=== PATIENT | female | born 1950 | race Caucasian/White ===

== ENCOUNTER 2018-08-18 13:33 | Outpatient (CLI) | payer MEDICARE ==
--- NOTE | 2018-08-18 16:29 | ULT ---
LEFT BREAST ULTRASOUND: HISTORY: Palpable abnormality of the 11 o'clock position of the left retroareolar breast. FINDINGS: Correlation is made with mammograms same date. Sonographic evaluation of the region of palpable concern at the 11 o'clock position of the left breas t 1 cm from the nipple demonstrates no abnormality. IMPRESSION: BIRADS category 2 - benign findings. Return to annual mammographic screening. Further evaluation (including biopsy) should be based on clinical findings/suspicion. POS: RIKA
== END 2018-08-18 13:34 | disposition home or self-care (01) ==
LOC: BICMAMMO 13:33
PROVIDERS: ATTEND Family Medicine
DX: N63.20 Unspecified lump in the left breast, unspecified quadrant (principal); Z80.3 Family history of malignant neoplasm of breast
CPT/HCPCS: 76642; 77066; G0279

== ENCOUNTER 2018-09-04 08:16 | Outpatient (CLI) | payer MEDICARE ==
--- NOTE | 2018-09-04 10:12 | ULT ---
ULTRASOUND ABDOMEN COMPLETE HISTORY: Abdominal pain. TECHNIQUE: Hughes-scale ultrasound evaluation of the liver, gallbladder, spleen, pancreas, common bile duct, kidne ys, abdominal aorta, and inferior vena cava (IVC). FINDINGS: There is no focal hepatic lesion. Echogenic focus, mobile, within the gallbladder lumen compatible w ith cholelithiasis. There is a borderline-sized gallbladder wall approximating 3 mm. The spleen is not reliably visualized. The common duct where visualized is normal in diameter at 4 mm. The pancre as is obscured from view by bowel content limiting assessment. No hydronephrosis of the left kidney. The right kidney is not visualized for comment. Denise's sign is reported as negative by the sonog rapher. There is no ascites. IMPRESSION: 1. Cholelithiasis. Borderline-sized gallbladder wall is present. Correlate clinically to exclude e vidence of developing cholecystitis. 2. Nonvisualization of right kidney. POS: RIKA
== END 2018-09-04 08:17 | disposition home or self-care (01) ==
LOC: BICULT 08:16
PROVIDERS: ATTEND Family Medicine
DX: R10.13 Epigastric pain (principal); K80.20 Calculus of gallbladder without cholecystitis without obstruction
CPT/HCPCS: 76700

== ENCOUNTER 2019-01-01 15:48 | Outpatient (CLI) | payer MEDICARE ==
--- NOTE | 2019-01-01 19:31 | RAD ---
THORACIC SPINE THREE VIEWS: History: Thoracic spine pain. FINDINGS: Thoracic vertebra maintain height and alignment on the lateral view. Mild degenerative spurring is no bertrand. On the AP view there is a mild scoliotic curvature with convexity to the right with apex at T11 and T12 measured at 13 degrees. IMPRESSION: Mild degenerative change thoracic spine. Mild scoliotic curvature as described. POS: C
--- NOTE | 2019-01-01 19:33 | RAD ---
LUMBAR SPINE TWO VIEWS: History: Back pain. FINDINGS: Two views were obtained. AP and lateral views weightbearing. In the lateral view the lumbar vertebrae maintain height and alignment. Mild degenerative spurring is seen. The disc spaces are preserved. Facet hypertrophy is noted throughout. There is a slight curvat ure to the left with apex to L3. No evidence of spondylolisthesis or spondylosis. IMPRESSION: Mild degenerative changes of the lumbar spine with slight curvature to the left in the AP projection. POS: [facility]
== END 2019-01-01 15:49 | disposition home or self-care (01) ==
LOC: BICRAD 15:48
PROVIDERS: ATTEND Family Medicine
DX: M54.6 Pain in thoracic spine (principal); M54.5 Low back pain; M47.816 Spondylosis without myelopathy or radiculopathy, lumbar region; M47.814 Spondylosis without myelopathy or radiculopathy, thoracic region; M41.9 Scoliosis, unspecified
CPT/HCPCS: 72072; 72100

== ENCOUNTER 2022-03-15 07:58 | Outpatient (CLI) | payer MEDICARE | END 2022-03-15 07:59 | disposition home or self-care (01) | LOC: RAD 07:58 | PROVIDERS: ATTEND Internal Medicine Critical Care Medicine | DX: R06.00 Dyspnea, unspecified (principal) | CPT/HCPCS: 71046 ==

== ENCOUNTER 2022-07-03 09:38 | Outpatient (CLI) | payer MEDICARE | END 2022-07-03 09:39 | disposition home or self-care (01) | LOC: BICMRI 09:38 | PROVIDERS: ATTEND Internal Medicine Hematology & Oncology | DX: C50.112 Malignant neoplasm of central portion of left female breast (principal) | CPT/HCPCS: 82565; C8908; A9577 ==

== ENCOUNTER 2022-07-04 09:53 | Outpatient (CLI) | payer MEDICARE ==
[2022-07-04 10:49] LABS: #Basophils 0.1 10x3/uL (0.0-0.2); #Eosinphils 0.4 10x3/uL (0.0-0.5); #Monocytes 0.5 10x3/uL (0.0-1.1); #Neutrophils 5.2 10x3/uL (1.5-8.4); %Basophils 0.8 % (0.0-2.0); %Eosinophils 5.4 % (0.0-6.0); %Lymphocytes 22.6 % (18.0-47.0); %Neutrophils 64.9 % (40.0-75.0); Hemoglobin 13.6 g/dL (12.0-15.5); Mean Corpuscular HGB CONC 33.2 g/dL (32.0-36.0); Mean Corpuscular Hemoglobin 28.9 pg (27.0-33.0); Mean Corpuscular Volume 87.2 fl (81.6-98.3); Mean Platelet Volume 9.9 fl (7.4-10.4); Platelet Count 252 10x3/uL (150-450); RBC Distribution Width 13.9 % (11.5-14.5)
[2022-07-04 11:28] LABS: ALT (SGPT) 28 U/L (8-55); AST (SGOT) 24 U/L (5-34); Alkaline Phosphatase 79 U/L (40-110); Anion Gap 12 mmol/L (10-20); BUN (Urea Nitrogen) 18 mg/dL (9.8-20.1); Bilirubin, Total 0.4 mg/dL (0.2-1.2); Calc. Creatinine Clearance 0 mL/min (70-130); Carbon Dioxide 28 mmol/L (23-31); Chloride 105 mmol/L (98-107); Estimated GFR 55; Globulin 2.6 g/dL (2.4-3.5); Glucose 122 mg/dL (83-110); Potassium 4.2 mmol/L (3.5-5.1); Protein, Total 6.6 g/dL (5.8-8.1); Sodium 141 mmol/L (136-145)
== END 2022-07-04 09:54 | disposition home or self-care (01) ==
LOC: LABBT 09:53
PROVIDERS: ATTEND Specialist
DX: Z01.818 Encounter for other preprocedural examination (principal); C50.912 Malignant neoplasm of unspecified site of left female breast; Z20.822 Contact with and (suspected) exposure to COVID-19
CPT/HCPCS: 71046; 80053; 85025; 87811; 93005; 93010

== ENCOUNTER 2022-07-16 15:03 | Outpatient (CLI) | payer MEDICARE | END 2022-07-16 15:04 | disposition home or self-care (01) | LOC: LABBT 15:03 | PROVIDERS: ATTEND Specialist | DX: Z20.822 Contact with and (suspected) exposure to COVID-19 (principal) | CPT/HCPCS: 87811 ==

== ENCOUNTER 2022-07-18 06:17 | Day surgery (SDC) | payer MEDICARE ==
[2022-07-17 13:22] VITALS: BMI 36.6
[2022-07-18] MEDS ORDERED: Bupivacaine/Epinephrine 0.25% 30 ML VIAL ONE ×2 (06:50→07:41)
[2022-07-18] MEDS ORDERED: EPINEPHrine 1 MG/ML AMP ONE (06:50)
[2022-07-18] MEDS ORDERED: Bupivacaine PF 0.5% 30 ML VIAL ONE (06:50)
[2022-07-18] MEDS ORDERED: Ketorolac Tromethamine 30 MG/ML VIAL ONE (06:54)
[2022-07-18] MEDS ORDERED: Acetaminophen 500 MG TAB ONE (06:54)
[2022-07-18] MEDS ORDERED: fentaNYL Citrate/PF 100 MCG/2 ML SYRINGE ONE (07:03)
[2022-07-18] MEDS ORDERED: Ketorolac Tromethamine 30 MG/ML VIAL IVP SCH (07:15)
[2022-07-18] MEDS ORDERED: Gabapentin 100 MG CAP PO SCH (07:15)
[2022-07-18] MEDS ORDERED: Acetaminophen 500 MG TAB PO SCH (07:15)
[2022-07-18] MEDS ORDERED: CEFAZOLIN 2 GM in Sodium Chloride 0.9% 100 ML IVPB SCH (07:15)
[2022-07-18] MEDS ORDERED: Sodium Chloride 0.9% 100 ML ONE (07:28)
[2022-07-18] MEDS ORDERED: CEFAZOLIN 2 GM VIAL ONE (07:28)
[2022-07-18] MEDS ORDERED: PROPOFOL 200 MG/20 ML VIAL ONE (07:41)
[2022-07-18] MEDS ORDERED: Ondansetron PF 4 MG/2 ML Vial ONE (07:41)
[2022-07-18] MEDS ORDERED: ePHEDrine 50 MG/ML VIAL ONE (07:41)
[2022-07-18] MEDS ORDERED: Dexamethasone 20 MG/5 ML VIAL ONE (07:41)
[2022-07-18] MEDS ORDERED: traMADol HCl 50 MG TAB ONE (09:27)
[2022-07-18] MEDS ORDERED: Morphine 2 MG/ML VIAL ONE (09:57)
== END 2022-07-18 10:20 | disposition home or self-care (01) ==
LOC: SDC 06:17
PROVIDERS: ATTEND Specialist
PROC: 0HBU0ZZ Excision of Left Breast, Open Approach (ICD-10-PCS; principal; 2022-07-18)
DX: C50.212 Malignant neoplasm of upper-inner quadrant of left female breast (principal); C77.3 Secondary and unspecified malignant neoplasm of axilla and upper limb lymph nodes; I10 Essential (primary) hypertension; Z17.0 Estrogen receptor positive status [ER+]; Z79.52 Long term (current) use of systemic steroids; Z79.899 Other long term (current) drug therapy; Z88.3 Allergy status to other anti-infective agents; Z88.5 Allergy status to narcotic agent
CPT/HCPCS: 19301; J2270; 88307; J0171; J0690; J1100; J1885; J2405; J2704; J3490; S0020

== ENCOUNTER 2022-08-14 14:20 | Outpatient (CLI) | payer MEDICARE | END 2022-08-14 14:21 | disposition home or self-care (01) | LOC: RAD 14:20 | PROVIDERS: ATTEND Internal Medicine Critical Care Medicine | DX: R06.00 Dyspnea, unspecified (principal) | CPT/HCPCS: 71046 ==

== ENCOUNTER 2022-08-23 08:55 | Outpatient (CLI) | payer MEDICARE ==
[~2022-08-23 08:55] MED LIST: Iopamidol 370 76% 100 ML VIAL ONE
== END 2022-08-23 08:56 | disposition home or self-care (01) ==
LOC: CT 08:55
PROVIDERS: ATTEND Radiology Radiation Oncology
DX: C50.212 Malignant neoplasm of upper-inner quadrant of left female breast (principal); K80.20 Calculus of gallbladder without cholecystitis without obstruction; K44.9 Diaphragmatic hernia without obstruction or gangrene; K57.30 Diverticulosis of large intestine without perforation or abscess without bleeding; Z90.5 Acquired absence of kidney
CPT/HCPCS: 71260; 74177; 82565; Q9967

== ENCOUNTER 2022-09-03 10:44 | Outpatient (CLI) | payer MEDICARE | END 2022-09-03 10:45 | disposition home or self-care (01) | LOC: NM 10:44 | PROVIDERS: ATTEND Radiology Radiation Oncology | DX: C50.212 Malignant neoplasm of upper-inner quadrant of left female breast (principal) | CPT/HCPCS: 78306; A9503 ==

== ENCOUNTER 2022-10-04 14:15 | Outpatient (CLI) | payer MEDICARE | END 2022-10-04 14:16 | disposition home or self-care (01) | LOC: RAD 14:15 | PROVIDERS: ATTEND Family Medicine | DX: J18.9 Pneumonia, unspecified organism (principal); J90 Pleural effusion, not elsewhere classified | CPT/HCPCS: 71046 ==

== ENCOUNTER 2022-11-06 09:34 | Outpatient (CLI) | payer MEDICARE | END 2022-11-06 09:35 | disposition home or self-care (01) | LOC: BICMAMMO 09:34 | PROVIDERS: ATTEND Internal Medicine Hematology & Oncology | DX: Z13.820 Encounter for screening for osteoporosis (principal); M81.0 Age-related osteoporosis without current pathological fracture; M85.852 Other specified disorders of bone density and structure, left thigh | CPT/HCPCS: 77080 ==

== ENCOUNTER 2023-01-11 08:30 | Outpatient (CLI) | payer MEDICARE | END 2023-01-11 08:31 | disposition home or self-care (01) | LOC: RAD 08:30 | PROVIDERS: ATTEND Internal Medicine Critical Care Medicine | DX: R06.00 Dyspnea, unspecified (principal) | CPT/HCPCS: 71046 ==

== ENCOUNTER 2023-01-16 09:57 | Outpatient (CLI) | payer MEDICARE | END 2023-01-16 09:58 | disposition home or self-care (01) | LOC: BICRAD 09:57 | PROVIDERS: ATTEND Internal Medicine Hematology & Oncology | DX: M81.8 Other osteoporosis without current pathological fracture (principal); M16.12 Unilateral primary osteoarthritis, left hip ==

== ENCOUNTER 2023-03-11 14:52 | Outpatient (CLI) | payer MEDICARE | END 2023-03-11 14:53 | disposition home or self-care (01) | LOC: RAD 14:52 | PROVIDERS: ATTEND Internal Medicine Critical Care Medicine | DX: R06.00 Dyspnea, unspecified (principal); J98.4 Other disorders of lung; R91.8 Other nonspecific abnormal finding of lung field | CPT/HCPCS: 71046 ==

== ENCOUNTER 2023-07-11 11:15 | Outpatient (CLI) | payer MEDICARE | END 2023-07-11 11:16 | disposition home or self-care (01) | LOC: BICMAMMO 11:15 | PROVIDERS: ATTEND Internal Medicine Hematology & Oncology | DX: Z08 Encounter for follow-up examination after completed treatment for malignant neoplasm (principal); Z85.3 Personal history of malignant neoplasm of breast | CPT/HCPCS: 77066; 82565; C8908; G0279; A9577 ==